=== PATIENT | female | born 2000 | race American Indian/Alaskan Native ===

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

== ENCOUNTER 2023-03-29 16:22 | Emergency (ER) | payer MEDICAID ==
[2023-03-29] MEDS ORDERED: Ondansetron 4 MG Tab.DIS PO ONE (16:34)
[2023-03-29] MEDS ORDERED: Take Home: predniSONE 20 MG, 2 Tab Pack PO ONE (16:34)
[2023-03-29] MEDS ORDERED: Ketorolac 30 MG/ML SDV IM ONE (16:34)
== END 2023-03-29 17:00 | disposition home or self-care (01) ==
LOC: CC.ED 16:22
DX: B34.9 Viral infection, unspecified (principal)
CPT/HCPCS: 96372; 99283; A9270-GY; J1885; J7512